=== PATIENT | male | born 1995 | race Caucasian/White ===

== ENCOUNTER 2017-03-21 23:03 | Emergency (ER) | payer BC ==
[2017-03-21] MEDS ORDERED: Proparacaine 0.5% Opth 15 ML BOT ONE (23:38)
[2017-03-21] MEDS ORDERED: Fluorescein Opthalmic Strip ONE (23:38)
== END 2017-03-22 00:03 | disposition home or self-care (01) ==
LOC: ERS 23:03
DX: S05.02XA Injury of conjunctiva and corneal abrasion without foreign body, left eye, initial encounter (principal); X58.XXXA Exposure to other specified factors, initial encounter
CPT/HCPCS: 99283